=== PATIENT | female | born 1925 | race Caucasian/White ===

== ENCOUNTER 2016-09-14 15:12 | Emergency (ER) | payer MEDICARE, BC ==
[~2016-09-14] VITALS: Ht 157.5 cm; Wt 70.8 kg
[~2016-09-14 15:12] MED LIST: CELEBREX200 MG PO; COREG25 MG PO; COUMADIN5 MG PO; CYMBALTA30 MG PO; DIPHENOXYLAT-AT60 ML PO; IMDUR30 MG PO; LIPITOR10 MG PO; MYSOLINE250 MG PO; NORTRIPTYLINE H10 MG PO; NORVASC10 MG PO; PREDNISONE5 MG PO; PRINIVIL10 MG PO; TOPROL XL100 MG PO; TRAVOPROST EYEBOTH; ULTRAM50 MG PO
== END 2016-09-14 16:35 | disposition short-term general hospital (02) ==
LOC: ER 15:12
DX: S86.912A Strain of unspecified muscle(s) and tendon(s) at lower leg level, left leg, initial encounter (principal); S76.012A Strain of muscle, fascia and tendon of left hip, initial encounter; M16.11 Unilateral primary osteoarthritis, right hip; M17.12 Unilateral primary osteoarthritis, left knee; W18.30XA Fall on same level, unspecified, initial encounter
CPT/HCPCS: 73502-LT

== ENCOUNTER 2016-09-21 22:26 | Emergency (ER) | payer MEDICARE, BC ==
[~2016-09-21] VITALS: Ht 157.5 cm; Wt 70.3 kg
== END 2016-09-22 01:10 | disposition short-term general hospital (02) ==
LOC: ER 22:26
DX: S72.002A Fracture of unspecified part of neck of left femur, initial encounter for closed fracture (principal); I48.91 Unspecified atrial fibrillation; I10 Essential (primary) hypertension; I25.10 Atherosclerotic heart disease of native coronary artery without angina pectoris; M19.90 Unspecified osteoarthritis, unspecified site; F32.9 Major depressive disorder, single episode, unspecified; Z79.01 Long term (current) use of anticoagulants; Z79.899 Other long term (current) drug therapy; Z88.6 Allergy status to analgesic agent; W18.30XA Fall on same level, unspecified, initial encounter; Z87.891 Personal history of nicotine dependence
CPT/HCPCS: 73501-LT; J1170